=== PATIENT | male | born 1965 | race African-American/Black ===

== ENCOUNTER 2022-04-07 12:01 | Emergency (ER) | payer MEDICAID ==
[~2022-04-07] VITALS: Ht 177.8 cm; Wt 76.0 kg
[2022-04-07 12:10] VITALS: BP 145/58
[2022-04-07] MEDS ORDERED: HYDR25SU37 RC (12:49)
== END 2022-04-07 13:33 | disposition home or self-care (01) ==
LOC: ER 12:01
DX: K64.8 Other hemorrhoids (principal)
CPT/HCPCS: 99283